=== PATIENT | male | born 1990 | race African-American/Black ===

== ENCOUNTER 2025-02-11 17:21 | Emergency (ER) | payer OTHER ==
[~2025-02-11] VITALS: Ht 175.3 cm; Wt 82.9 kg
[2025-02-11] MEDS ORDERED: LIDOCAINE HC PR (19:10)
[2025-02-11 19:23] VITALS: BP 153/79
== END 2025-02-11 19:25 | disposition home or self-care (01) ==
LOC: ED 17:21
DX: K64.4 Residual hemorrhoidal skin tags (principal)
CPT/HCPCS: 99282